=== PATIENT | female | born 1960 | race Two or more races ===

== ENCOUNTER 2025-08-27 08:52 | Emergency (ER) | payer OTHER ==
[~2025-08-27] VITALS: Ht 162.6 cm; Wt 72.6 kg
[2025-08-27] MEDS ORDERED: GLIMEPIRIDE4 M1 PO (09:14)
[2025-08-27] MEDS ORDERED: SYNJARDY 12.5-1 EACH PO (09:14)
[2025-08-27] MEDS ORDERED: ROSUVASTATIN CA10 MG PO (09:15)
[2025-08-27] MEDS ORDERED: LOSARTAN POTASS50 MG PO (09:15)
[2025-08-27] MEDS ORDERED: LATANOPROST2.5 ML OP (09:17)
[2025-08-27] MEDS ORDERED: KETOROLAC TROMETHAMINE 30 MG VIAL IV STA (09:23)
[2025-08-27] MEDS ORDERED: FAMOTIDINE/PF 20 MG/2 ML VIAL IV STA (09:24)
[2025-08-27] MEDS ORDERED: 0.9 % SODIUM CHLORIDE 1,000 ML IV SCH (09:30)
[2025-08-27] MEDS ORDERED: KETOROLAC TROMETHAMINE 30 MG VIAL ONE (11:17)
[2025-08-27] MEDS ORDERED: FAMOTIDINE/PF 20 MG/2 ML VIAL ONE (11:17)
[2025-08-27 12:16] LABS: BASO % 0.2 % (0.1-1.2); EOS # 0.12 (0.04-0.54); EOS % 1.2 % (0.7-7.0); LYMPH # 2.87 (1.18-3.74); LYMPH % 29.8 % (19.3-53.1); MEAN PLATELET VOLUME 10.50 fl (9.4-12.4); MONO # 0.77 (0.24-0.82); MONO % 8.0 % (4.7-12.5); NEUT # 5.82 (1.56-6.13); NEUT % 60.5 % (34.0-71.1); RED CELL DISTRIBUTION WIDTH 14.4 % (11.6-14.4)
[2025-08-27 12:21] LABS: ERYTHROCYTE SEDIMENTATION RATE 91 mm/hr (0-30)
[2025-08-27 12:32] LABS: INR 1.02
[2025-08-27 13:09] LABS: ALT/SGPT 32.0 U/L (12-78); AST/SGOT 32.0 U/L (15-37); BILIRUBIN TOTAL 0.56 mg/dL (0.3-1.2); BUN CREA RATIO 31.0 (7.0-25.0); CREATININE SERUM 0.54 mg/dL (0.55-1.02); GFR 113.3; GLOBULINA 4.1 G/DL (2.4-3.5); GLUCOSE FASTING 92.0 mg/dL (65-100); OSMOLALITY SERUM 271.0 MOSM/KG (275-295)
[2025-08-27 13:20] LABS: URINE APPEARANCE Clear; URINE BILIRRUBIN Negative (NEGATIVE); URINE BLOOD Negative; URINE COLOR Yellow; URINE KETONE Negative (NEGATIVE); URINE LEUKOCYTE Trace; URINE NITRATE Negative; URINE PROTEIN Negative (NEGATIVE); URINE UROBILINOGEN 0.2 E.U./dl
[2025-08-27 13:25] LABS: URINE BACTERIA 53.9 uL (0.0-1933); URINE EPITHELIAL CELLS 6.7 uL (0.0-38.8); URINE RBC 10.9 uL (0.0-20.8); URINE WBC 2.7 uL (0.0-23.2)
[2025-08-27 13:33] LABS: URINE CAST 0.73 uL (0.0-1.40); URINE GLUCOSE >=1000 MG/DL (NEGATIVE)
[2025-08-27] MEDS ORDERED: CIPRO500 MG PO (17:38)
[2025-08-27] MEDS ORDERED: INTESTINEX680 M1 PO (17:38)
[2025-08-27] MEDS ORDERED: PEPCID AC20 MG PO (17:38)
== END 2025-08-27 18:31 | disposition home or self-care (01) ==
LOC: ER 08:52
PROVIDERS: Physician Assistant Medical
DX: K52.9 Noninfective gastroenteritis and colitis, unspecified (principal); K57.92 Diverticulitis of intestine, part unspecified, without perforation or abscess without bleeding; R10.9 Unspecified abdominal pain; I10 Essential (primary) hypertension; E11.9 Type 2 diabetes mellitus without complications; Z79.84 Long term (current) use of oral hypoglycemic drugs
CPT/HCPCS: 36415; 74177; 96365; 96366; 99284; J1885; J3490; J7030; Q9965